=== PATIENT | female | born 1960 | race Caucasian/White ===

== ENCOUNTER 2024-02-05 14:05 | Emergency (ER) | payer OTHER ==
[~2024-02-05] VITALS: Ht 167.6 cm; Wt 77.2 kg
[2024-02-05] MEDS: UNRESOLVED CLARIFICATION ENTRY XX SCH (00:01)
[2024-02-05] MEDS: LIDOCAINE W/EPINEPHRINE 1% 20ML VIAL SC ONE (14:15)
[2024-02-05] MEDS: BOOSTRIX VACCINE (TETANUS/DIPHTH/ACEL. PERTUSSIS) 0.5ML SYR IM ONE (14:48)
[2024-02-05] MEDS ORDERED: CEPH500C PO (16:30)
[2024-02-05] MEDS: CEPHALEXIN 500 MG CAP PO ONE (17:18)
[2024-02-05 17:27] VITALS: BP 171/69; TEMP 97.2; O2SAT 100
== END 2024-02-05 17:30 | disposition home or self-care (01) ==
LOC: M ED 14:05 → EDBD 14:05 → M ED 17:30
DX: S01.81XA Laceration without foreign body of other part of head, initial encounter (principal); S80.212A Abrasion, left knee, initial encounter; W16.112A Fall into natural body of water striking water surface causing other injury, initial encounter; I10 Essential (primary) hypertension; M50.121 Cervical disc disorder at C4-C5 level with radiculopathy; M50.122 Cervical disc disorder at C5-C6 level with radiculopathy; M47.812 Spondylosis without myelopathy or radiculopathy, cervical region; Z86.79 Personal history of other diseases of the circulatory system; Y92.89 Other specified places as the place of occurrence of the external cause; Y93.89 Activity, other specified; Y99.9 Unspecified external cause status; Z79.01 Long term (current) use of anticoagulants; Z96.651 Presence of right artificial knee joint; Z23 Encounter for immunization; Z79.2 Long term (current) use of antibiotics